=== PATIENT | male | born 1960 | race Two or more races ===

== ENCOUNTER 2024-07-03 14:50 | Inpatient (IN) | payer SELFPAY ==
[2024-07-03 15:16] VITALS: BMI 27.5
[2024-07-03 16:44] LABS: BASO % 0.8 % (0-2.0); EOS % 0.7 % (0-4.5); HEMATOCRIT 40.6 % (35.4-49); HEMOGLOBIN 13.5 GM/dL (11.7-16.9); LYMPH % 17.3 % (8-40); MCHC 33.2 g/dl (32.0-35.9); MEAN CELL VOLUME 90.3 fl (80-96); MONO % 9.1 % (3.8-10.2); NEUT % 72.1 % (42.8-82.8); PLATELET COUNT 272 10^3/uL (134-434); RDW 13.4 % (11.9-15.9); WHITE BLOOD COUNT 5.2 K/mm3 (4.0-10.0)
[2024-07-03 16:50] LABS: EPI CELLS 11 /uL (0-25.1); HYALINE CASTS 0 /uL (0-3.1); PH,URINE 6.5 (5.0-8.0); URINE APPEARANCE CLEAR; URINE BACTERIA 43 /uL (0-1359); URINE BILIRUBIN NEGATIVE (NEGATIVE); URINE COLOR YELLOW; URINE GLUCOSE (UA) NEGATIVE (NEGATIVE); URINE KETONE NEGATIVE (NEGATIVE); URINE LEUK ESTERASE TRACE (NEGATIVE); URINE NITRITE NEGATIVE (NEGATIVE); URINE PROTEIN NEGATIVE (NEGATIVE); URINE RBC 28 /uL (0-23.9); URINE UROBILINOGEN 0.2 mg/dL (0.2-1.0); URINE WBC 87 /uL (0-25.8)
[2024-07-03 17:03] LABS: POTASSIUM 4.5 mmol/L (3.5-5.1)
[2024-07-03 17:05] LABS: CALCIUM 9.5 mg/dL (8.5-10.1)
[2024-07-03 17:06] LABS: ALBUMIN 3.2 g/dl (3.4-5.0); BLOOD UREA NITROGEN 12.3 mg/dL (7-18)
[2024-07-03 17:09] LABS: CREATININE 1.1 mg/dL (0.55-1.3)
[2024-07-03 17:10] LABS: BILIRUBIN,TOTAL 0.7 mg/dL (0.2-1); TOT PROT 8.2 g/dl (6.4-8.2)
[2024-07-03 18:03] LABS: HIV INTERPRETATION NEGATIVE (NEGATIVE)
[2024-07-03] MEDS: ACETAMINOPHEN 500 MG TABLET (FP) PO ONE (21:20)
[2024-07-03] MEDS ORDERED: ACETAMINOPHEN 325 MG TABLET (FP) ONE (21:21)
[2024-07-04] MEDS: TAMSULOSIN HCL 0.4 MG CAP PO SCH (08:51)
[2024-07-04 09:20] LABS: HEMATOCRIT 38.4 % (35.4-49); HEMOGLOBIN 13.1 GM/dL (11.7-16.9); MCH 30.6 pg (25.7-33.7); MCHC 34.1 g/dl (32.0-35.9); MEAN CELL VOLUME 89.8 fl (80-96); MEAN PLT VOLUME 9.5 fl (7.5-11.1); PLATELET COUNT 265 10^3/uL (134-434); RBC 4.27 M/mm3 (4.00-5.60); RDW 13.4 % (11.9-15.9); WHITE BLOOD COUNT 4.9 K/mm3 (4.0-10.0)
[2024-07-04 09:48] LABS: CALCIUM 9.4 mg/dL (8.5-10.1)
[2024-07-04 09:49] LABS: ALBUMIN 3.2 g/dl (3.4-5.0); BLOOD UREA NITROGEN 13.5 mg/dL (7-18)
[2024-07-04 09:52] LABS: CREATININE 1.1 mg/dL (0.55-1.3); PHOSPHOROUS 3.8 mg/dL (2.5-4.9)
[2024-07-04 09:54] LABS: BILIRUBIN,TOTAL 0.7 mg/dL (0.2-1)
[2024-07-04] MEDS: ENOXAPARIN NA (PORCINE) 40 MG/0.4 ML DISP.SYRIN SQ SCH (10:20)
[2024-07-04 20:34] LABS: PH,URINE 6.5 (5.0-8.0); URINE APPEARANCE CLEAR; URINE BILIRUBIN NEGATIVE (NEGATIVE); URINE COLOR YELLOW; URINE GLUCOSE (UA) NEGATIVE (NEGATIVE); URINE KETONE NEGATIVE (NEGATIVE); URINE LEUK ESTERASE NEGATIVE (NEGATIVE); URINE NITRITE NEGATIVE (NEGATIVE); URINE PROTEIN NEGATIVE (NEGATIVE)
[2024-07-04 20:40] LABS: EPI CELLS 3.1 /uL (0-25.1); HYALINE CASTS 0.13 /uL (0-3.1); URINE BACTERIA 15.1 /uL (0-1359); URINE RBC 8.7 /uL (0-23.9)
[2024-07-05 09:14] LABS: HEMATOCRIT 37.7 % (35.4-49); HEMOGLOBIN 12.5 GM/dL (11.7-16.9); MCH 30.2 pg (25.7-33.7); MCHC 33.2 g/dl (32.0-35.9); MEAN CELL VOLUME 91.1 fl (80-96); MEAN PLT VOLUME 8.9 fl (7.5-11.1); PLATELET COUNT 250 10^3/uL (134-434); RBC 4.14 M/mm3 (4.00-5.60); RDW 13.3 % (11.9-15.9); WHITE BLOOD COUNT 4.5 K/mm3 (4.0-10.0)
[2024-07-05 09:26] LABS: POTASSIUM 3.7 mmol/L (3.5-5.1)
[2024-07-05 09:29] LABS: ALBUMIN 2.9 g/dl (3.4-5.0); BLOOD UREA NITROGEN 11.6 mg/dL (7-18); CALCIUM 9.2 mg/dL (8.5-10.1)
[2024-07-05 09:34] LABS: BILIRUBIN,TOTAL 0.6 mg/dL (0.2-1); TOT PROT 7.4 g/dl (6.4-8.2)
[2024-07-05] MEDS: amLODIPine BESYLATE 5 MG TABLET (FP) PO SCH (10:42)
[2024-07-05] MEDS: LIDOCAINE 4% PATCH TP SCH (20:54)
[2024-07-06] MEDS: LIDOCAINE 4% PATCH TP ONE (00:17)
[2024-07-06] MEDS: LABETALOL HCL 20 MG/4 ML VIAL IVPUSH ONE (03:21)
[2024-07-06] MEDS: LISINOPRIL 5 MG TABLET PO ONE (03:22)
[2024-07-06] MEDS ORDERED: LIDOCAINE PATCH REMOVAL MC SCH (08:00)
[2024-07-06] MEDS: LIDOCAINE PATCH REMOVAL MC SCH (08:10)
[2024-07-06 08:38] LABS: HEMATOCRIT 37.3 % (35.4-49); HEMOGLOBIN 12.3 GM/dL (11.7-16.9); MCHC 33.1 g/dl (32.0-35.9); MEAN CELL VOLUME 90.5 fl (80-96); MEAN PLT VOLUME 9.4 fl (7.5-11.1); PLATELET COUNT 246 10^3/uL (134-434); RBC 4.12 M/mm3 (4.00-5.60); RDW 13.2 % (11.9-15.9); WHITE BLOOD COUNT 5.2 K/mm3 (4.0-10.0)
[2024-07-06 09:12] LABS: POTASSIUM 4.3 mmol/L (3.5-5.1)
[2024-07-06 09:14] LABS: ALBUMIN 2.9 g/dl (3.4-5.0); BLOOD UREA NITROGEN 12.2 mg/dL (7-18)
[2024-07-06 09:17] LABS: CREATININE 0.9 mg/dL (0.55-1.3)
[2024-07-06 09:18] LABS: BILIRUBIN,TOTAL 0.7 mg/dL (0.2-1); TOT PROT 7.4 g/dl (6.4-8.2)
[2024-07-06] MEDS ORDERED: LIDOCAINE PATCH REMOVAL MC ONE (12:00)
[2024-07-06] MEDS: oxyCODONE HCL 5 MG TABLET PO PRN (16:44)
[2024-07-06] MEDS: ACETAMINOPHEN 325 MG TABLET (FP) PO PRN (16:46)
[2024-07-07 09:32] LABS: EOS % 1.7 % (0-4.5); HEMOGLOBIN 12.1 GM/dL (11.7-16.9); LYMPH % 15.3 % (8-40); MCH 30.2 pg (25.7-33.7); MCHC 33.6 g/dl (32.0-35.9); MEAN CELL VOLUME 89.8 fl (80-96); MEAN PLT VOLUME 9.3 fl (7.5-11.1); PLATELET COUNT 216 10^3/uL (134-434); RBC 4.01 M/mm3 (4.00-5.60); RDW 13.2 % (11.9-15.9); WHITE BLOOD COUNT 4.9 K/mm3 (4.0-10.0)
[2024-07-07 09:46] LABS: INR 1.28 (0.83-1.09); PROTHROMBIN TIME (PATIENT) 14.4 SEC (9.7-13.0)
[2024-07-07 09:51] LABS: POTASSIUM 3.9 mmol/L (3.5-5.1)
[2024-07-07 10:04] LABS: BILIRUBIN,TOTAL 0.6 mg/dL (0.2-1); TOT PROT 7.3 g/dl (6.4-8.2)
[2024-07-07 10:05] LABS: ALBUMIN 2.8 g/dl (3.4-5.0); CALCIUM 8.7 mg/dL (8.5-10.1); CREATININE 0.9 mg/dL (0.55-1.3)
[2024-07-08] MEDS ORDERED: MIDAZOLAM HCL 2 MG/2 ML SINGLE DOSE VIAL ONE (09:14)
[2024-07-08 15:27] VITALS: BP 147/86; PULSE 97; RESP 18; TEMP 98.2
== END 2024-07-08 07:45 | disposition home or self-care (01) | DRG 681 ==
LOC: JER 14:50 → INTOOBSV 20:38 → JERBED 20:38 → J8W 07-04 01:03 → OBSVTOIN 07-05 10:44
PROVIDERS: ADMIT Internal Medicine; ATTEND Nurse Practitioner Family
PROC: 0WBH3ZX Excision of Retroperitoneum, Percutaneous Approach, Diagnostic (ICD-10-PCS; principal; 2024-07-08)
PROC: 07BB3ZX Excision of Mesenteric Lymphatic, Percutaneous Approach, Diagnostic (ICD-10-PCS; 2024-07-08)
DX: C77.8 Secondary and unspecified malignant neoplasm of lymph nodes of multiple regions (principal); C61 Malignant neoplasm of prostate; C78.00 Secondary malignant neoplasm of unspecified lung; N40.0 Benign prostatic hyperplasia without lower urinary tract symptoms; C79.51 Secondary malignant neoplasm of bone; N13.30 Unspecified hydronephrosis; F84.0 Autistic disorder; I10 Essential (primary) hypertension; R35.0 Frequency of micturition; R59.0 Localized enlarged lymph nodes
CPT/HCPCS: 0241U-QW; 36415; 38505; 71250-TC; 74177-TC; 76775-TC; 76856-TC; 77012-TC; 80053; 81003; 83036; 83735; 84100; 84153; 85025; 85027; 85610; 86803; 87086; 87186; 87389; 88305-TC; 88341-TC; 88342-TC; 93005; 93010; 99285-25; G0378; Q9967